=== PATIENT | male | born 1980 | race Caucasian/White ===

== ENCOUNTER 2021-06-11 15:48 | Emergency (ER) | payer SELFPAY ==
[~2021-06-11] VITALS: Ht 180.3 cm; Wt 93.0 kg
[2021-06-11 15:56] VITALS: BP 134/100
[2021-06-11] MEDS ORDERED: AMOX500C2 PO (16:08)
[2021-06-11] MEDS ORDERED: HYDR-4303 PO (16:08)
== END 2021-06-11 16:15 | disposition home or self-care (01) ==
LOC: ER 15:53
DX: K08.89 Other specified disorders of teeth and supporting structures (principal)